=== PATIENT | male | born 1975 | race Caucasian/White ===

== ENCOUNTER 2019-02-03 13:01 | Emergency (ER) | payer SELFPAY ==
[~2019-02-03] VITALS: Ht 172.7 cm; Wt 70.0 kg
[2019-02-03 13:07] VITALS: BP 130/90; PULSE 80; RESP 18; Ht 172.7 cm; Wt 70.0 kg
--- NOTE | 2019-02-03 13:38 | EN ---
Date/Time of Note Date/Time of Note DATE: 02/03/19 TIME: 13:34 ER Progress Note [id number] male brought in by rescue for abdominal pain for last 2 weeks. Patient guarding right mid abdominal area. Gives vague history of colitis and hematuria. Patient does not meet SIRS criteria. Patient states that he will go to other hospital after less than 1 hour wait for ER 1 bed and subsequently walked out unassisted. Patient ambulatory without deficits or weakness. YESIKA TURPIN MD Feb 03, 2019 13:38
== END 2019-02-03 13:33 | disposition left against medical advice (07) ==
LOC: E/R 13:01
DX: Z53.21 Procedure and treatment not carried out due to patient leaving prior to being seen by health care provider (principal)